=== PATIENT | male | born 1955 | race Caucasian/White ===

== ENCOUNTER 2018-08-11 12:21 | Emergency (ER) | payer OTHER ==
[~2018-08-11] VITALS: Wt 71.7 kg
[~2018-08-11 12:21] MED LIST: CO Q-1010 M2 PO; FISH OIL500 M1 PO; VITAMIN D5000 I3 PO
[2018-08-11 13:01] LABS: BASO % 0.3 % (0.0-1.0); EOS % 0.2 % (1.0-4.0); HEMATOCRIT 36.2 % (42.0-52.0); HEMOGLOBIN 11.3 g/dl (14.0-18.0); LYMPH # 1.3 10*3/uL (1.3-4.4); LYMPH % 11.3 % (27.0-41.0); MEAN CELL VOLUME 79.7 fl (80.0-94.0); MEAN CORPUSCULAR HGB 24.9 pg (27.0-31.0); MEAN CORPUSCULAR HGB CONC 31.2 g/dl (33.0-37.0); MEAN PLATELET VOLUME 10.3 fl (9.6-12.3); MONO # 1.2 10*3/uL (0.1-1.0); MONO % 10.4 % (3.0-9.0); NEUT # 9.2 10*3/uL (2.3-7.9); NEUT % 77.5 % (47.0-73.0); PLATELET COUNT AUTOMATED 423 10*3/uL (130-400); RED BLOOD COUNT 4.54 10*6/uL (4.50-5.90); WHITE BLOOD COUNT 11.8 10*3/uL (4.8-10.8)
[2018-08-11 13:11] LABS: ACT PARTIAL THROMBO TIME 30.3 SECONDS (20.8-31.5); INTERNATIONAL NORM RATIO 1.2 (2.0-3.5)
[2018-08-11 13:17] LABS: ALBUMIN 2.6 gm/dl (3.1-4.5); ALKALINE PHOSPHATASE 278 U/L (45-117); BUN 8 mg/dl (7-24); CHLORIDE 104 mmol/L (98-107); CREATININE 0.44 mg/dL (0.70-1.30); POTASSIUM 3.5 mmol/L (3.5-5.1); SGOT/AST 72 IU/L (3-35); SGPT/ALT 52 U/L (12-78); SODIUM 136 mmol/L (136-145); TOTAL PROTEIN 7.7 gm/dL (6.4-8.2)
== END 2018-08-11 14:58 | disposition short-term general hospital (02) ==
LOC: ED 12:21
PROVIDERS: Emergency Medicine
DX: M00.9 Pyogenic arthritis, unspecified (principal); L03.115 Cellulitis of right lower limb; M25.462 Effusion, left knee; M25.461 Effusion, right knee; Z87.891 Personal history of nicotine dependence; Z79.899 Other long term (current) drug therapy; Z85.038 Personal history of other malignant neoplasm of large intestine

== ENCOUNTER → 2020-02-28 | Outpatient (CLI) | payer MEDICARE ==
[2020-02-28 10:33] LABS: BASO % 0.6 % (0.0-1.0); EOS # 0.1 10*3/uL (0.0-0.4); EOS % 1.8 % (1.0-4.0); HEMATOCRIT 46.5 % (42.0-52.0); LYMPH # 1.2 10*3/uL (1.3-4.4); LYMPH % 17.2 % (27.0-41.0); MEAN CELL VOLUME 90.5 fl (80.0-94.0); MEAN CORPUSCULAR HGB 28.4 pg (27.0-31.0); MEAN CORPUSCULAR HGB CONC 31.4 g/dl (33.0-37.0); MEAN PLATELET VOLUME 11.3 fl (9.6-12.3); MONO # 0.5 10*3/uL (0.1-1.0); MONO % 7.5 % (3.0-9.0); NEUT # 4.9 10*3/uL (2.3-7.9); NEUT % 72.6 % (47.0-73.0); PLATELET COUNT AUTOMATED 198 10*3/uL (130-400); RED BLOOD COUNT 5.14 10*6/uL (4.50-5.90); RED CELL DISTRI WIDTH 14.3 % (0-14.5); RETICULOCYTE % 1.34 % (0.50-2.50); WHITE BLOOD COUNT 6.7 10*3/uL (4.8-10.8)
[2020-02-28 10:56] LABS: ALBUMIN 3.9 gm/dl (3.1-4.5); BUN 13 mg/dl (7-24); CHLORIDE 113 mmol/L (98-107); CREATININE 0.73 mg/dL (0.70-1.30); IRON 102 ug/dL (65-175); SGOT/AST 78 IU/L (3-35); SGPT/ALT 85 U/L (12-78); SODIUM 141 mmol/L (136-145); TOTAL IRON BINDING CAPACITY 377 ug/dl (250-450); TOTAL PROTEIN 7.3 gm/dL (6.4-8.2)
[2020-02-28 10:57] LABS: ALKALINE PHOSPHATASE 95 U/L (45-117)
[2020-02-28 10:58] LABS: ACT PARTIAL THROMBO TIME 25.7 SECONDS (20.0-32.1)
[2020-02-28 11:04] LABS: POTASSIUM 4.1 mmol/L (3.5-5.1)
== END | disposition home or self-care (01) ==
LOC: LAB 09:59
PROVIDERS: Family Medicine
DX: R79.89 Other specified abnormal findings of blood chemistry (principal); R53.83 Other fatigue; M79.609 Pain in unspecified limb

== ENCOUNTER → 2020-04-04 | Outpatient (CLI) | payer MEDICARE | END | disposition home or self-care (01) | LOC: US 16:24 | DX: R60.0 Localized edema (principal) ==

== ENCOUNTER → 2020-08-07 | Outpatient (CLI) | payer MEDICARE | END | disposition home or self-care (01) | LOC: US 07-26 13:30 | PROVIDERS: ATTEND Orthopaedic Surgery | DX: R59.0 Localized enlarged lymph nodes (principal); R93.5 Abnormal findings on diagnostic imaging of other abdominal regions, including retroperitoneum ==

== ENCOUNTER 2020-11-19 15:48 | Emergency (ER) | payer MEDICARE ==
[~2020-11-19] VITALS: Ht 177.8 cm; Wt 83.9 kg
[2020-11-19] MEDS ORDERED: COLCHICINE0.6 M2 PO (16:00)
[2020-11-19] MEDS ORDERED: ALEVE220 MG PO (16:01)
== END 2020-11-19 19:00 | disposition home or self-care (01) ==
LOC: ED 15:48
DX: S01.21XA Laceration without foreign body of nose, initial encounter (principal); Z79.899 Other long term (current) drug therapy; M06.9 Rheumatoid arthritis, unspecified; Z87.891 Personal history of nicotine dependence; W10.8XXA Fall (on) (from) other stairs and steps, initial encounter; Y93.89 Activity, other specified; Y92.89 Other specified places as the place of occurrence of the external cause; Y99.8 Other external cause status

== ENCOUNTER → 2024-02-22 | Outpatient (CLI) | payer MEDICARE ==
[~2024-02-22] MED LIST changes: +ALEVE220 MG PO; +COLCHICINE0.6 M2 PO
== END ==
LOC: LAB 09:37
PROVIDERS: ATTEND Family Medicine
DX: R53.83 Other fatigue (principal); R79.89 Other specified abnormal findings of blood chemistry

== ENCOUNTER → 2024-05-12 | Outpatient (CLI) | payer MEDICARE ==
[2024-05-12 16:34] LABS: ALKALINE PHOSPHATASE 86 U/L (46-116); BUN 16 mg/dl (9-23); CHLORIDE 108 mmol/L (98-107); POTASSIUM 4.1 mmol/L (3.4-5.1); SGPT/ALT 68 U/L (5-49); TOTAL PROTEIN 7.3 gm/dL (6.0-8.0)
== END | disposition home or self-care (01) ==
LOC: LAB 15:32
PROVIDERS: ATTEND Orthopaedic Surgery
DX: R53.83 Other fatigue (principal); M25.569 Pain in unspecified knee

== ENCOUNTER → 2024-08-11 | Outpatient (CLI) | payer MEDICARE ==
[2024-08-11 12:32] LABS: BILIRUBIN 1+ (Negative); BLOOD Negative (Negative); CLARITY Clear (Clear); COLOR Orange (Yellow); GLUCOSE Trace (Negative); KETONE Trace (Negative); LEUKO ESTERASE Trace (Negative); NITRITE Negative (Negative); SPECIFIC GRAVITY >= 1.030 (1.001-1.030)
[2024-08-11 12:35] LABS: HEMATOCRIT 47.8 % (42.0-52.0); MEAN CELL VOLUME 83.3 fl (80.0-94.0); MEAN CORPUSCULAR HGB 27.2 pg (27.0-31.0); MEAN CORPUSCULAR HGB CONC 32.6 g/dl (33.0-37.0); MEAN PLATELET VOLUME 11.6 fl (9.6-12.3); PLATELET COUNT AUTOMATED 122 10*3/uL (130-400); RED BLOOD COUNT 5.74 10*6/uL (4.50-5.90); RED CELL DISTRI WIDTH 12.9 % (0-14.5); RETICULOCYTE % 1.11 % (0.50-2.50); WHITE BLOOD COUNT 6.1 10*3/uL (4.8-10.8)
[2024-08-11 12:57] LABS: MANUAL DIFF REFLEX YES
[2024-08-11 13:02] LABS: ATYPICAL LYMPHS 11 % (0-0); TOTAL CELLS COUNTED 100 #CELLS
[2024-08-11 13:03] LABS: PLATELET SUFFICIENCY LOW (NORMAL)
[2024-08-11 13:18] LABS: ALKALINE PHOSPHATASE 86 U/L (46-116); BUN 17 mg/dl (9-23); CHLORIDE 101 mmol/L (98-107); GAMMA GLUTAMYL TRANSPEPTIDASE 63 U/L (0-73); POTASSIUM 3.7 mmol/L (3.4-5.1); SGPT/ALT 99 U/L (5-49); THYROXINE (T4) TOTAL 9.8 ug/dl (4.5-10.9); TOTAL PROTEIN 7.7 gm/dL (6.0-8.0)
[2024-08-11 13:19] LABS: VITAMIN D, 25-HYDROXY 37.3 ng/mL (30-100)
[2024-08-11 13:42] LABS: BACTERIA 1+; RBC 0-2 rbc/hpf (0-2)
[2024-08-11 13:43] LABS: MUCOUS 3+
[2024-08-12 05:07] LABS: HBsAG SCREEN Negative (Negative); HCV Ab Non Reactive (Non Reactive); HEP B CORE Ab, IgM Negative (Negative)
== END | disposition home or self-care (01) ==
LOC: LAB 11:40
PROVIDERS: ATTEND Family Medicine
DX: R53.83 Other fatigue (principal); R79.89 Other specified abnormal findings of blood chemistry; E78.5 Hyperlipidemia, unspecified; R74.8 Abnormal levels of other serum enzymes; E55.9 Vitamin D deficiency, unspecified

== ENCOUNTER → 2024-09-08 | Outpatient (CLI) | payer MEDICARE ==
[2024-09-08 12:16] LABS: BASO % 0.6 % (0.0-1.0); EOS # 0.2 10*3/uL (0.0-0.4); EOS % 3.5 % (1.0-4.0); HEMATOCRIT 44.9 % (42.0-52.0); MEAN CELL VOLUME 86.3 fl (80.0-94.0); MEAN CORPUSCULAR HGB 27.1 pg (27.0-31.0); MEAN CORPUSCULAR HGB CONC 31.4 g/dl (33.0-37.0); MEAN PLATELET VOLUME 10.3 fl (9.6-12.3); MONO # 0.4 10*3/uL (0.1-1.0); MONO % 6.8 % (3.0-9.0); NEUT # 3.3 10*3/uL (2.3-7.9); NEUT % 64.5 % (47.0-73.0); PLATELET COUNT AUTOMATED 171 10*3/uL (130-400); RED CELL DISTRI WIDTH 12.4 % (0-14.5); RETICULOCYTE % 1.43 % (0.50-2.50); WHITE BLOOD COUNT 5.1 10*3/uL (4.8-10.8)
[2024-09-08 12:17] LABS: BILIRUBIN Negative (Negative); BLOOD Negative (Negative); CLARITY Clear (Clear); COLOR Yellow (Yellow); GLUCOSE 3+ (Negative); KETONE Negative (Negative); LEUKO ESTERASE Negative (Negative); NITRITE Negative (Negative); PH 5.5 (4.5-8.0); SPECIFIC GRAVITY 1.025 (1.001-1.030); UROBILINOGEN 0.2 E.U./dl (0.0-1.0)
[2024-09-08 12:37] LABS: RBC 0-2 rbc/hpf (0-2); WBC 0-2 wbc/hpf (0-5)
[2024-09-08 12:45] LABS: ALKALINE PHOSPHATASE 106 U/L (46-116); BUN 12 mg/dl (9-23); CHLORIDE 105 mmol/L (98-107); CHOLESTEROL 173 mg/dL (<200); GAMMA GLUTAMYL TRANSPEPTIDASE 51 U/L (0-73); LDL CHOLESTEROL 79 mg/dL (9-159); POTASSIUM 3.8 mmol/L (3.4-5.1); SGPT/ALT 62 U/L (5-49); TOTAL PROTEIN 7.2 gm/dL (6.0-8.0); TRIGLYCERIDES 144 mg/dl (<150)
[2024-09-09 05:06] LABS: HBsAG SCREEN Negative (Negative); HCV Ab Non Reactive (Non Reactive); HEP B CORE Ab, IgM Negative (Negative)
== END | disposition home or self-care (01) ==
LOC: LAB 11:46
PROVIDERS: ATTEND Family Medicine
DX: R79.89 Other specified abnormal findings of blood chemistry (principal); R53.83 Other fatigue; E78.5 Hyperlipidemia, unspecified; E55.9 Vitamin D deficiency, unspecified

== ENCOUNTER → 2025-06-02 | Outpatient (CLI) | payer MEDICARE | END | disposition home or self-care (01) | LOC: RAD 10:38 | PROVIDERS: ATTEND Family Medicine | DX: M47.814 Spondylosis without myelopathy or radiculopathy, thoracic region (principal); M19.012 Primary osteoarthritis, left shoulder ==

== ENCOUNTER → 2025-08-23 | Outpatient (CLI) | payer MEDICARE ==
[2025-08-23 10:16] LABS: MEAN CELL VOLUME 85.4 fl (80.0-94.0); MEAN CORPUSCULAR HGB 27.6 pg (27.0-31.0); MEAN PLATELET VOLUME 10.2 fl (9.6-12.3); NUCLEATED RED BLOOD CELL 0.0 % (0.0-0.0); NUCLEATED RED BLOOD CELL 0.0 10*3/uL (0.0-0.0); PLATELET COUNT AUTOMATED 169 10*3/uL (130-400); RED CELL DISTRI WIDTH 12.6 % (0-14.5); RETICULOCYTE % 0.85 % (0.50-2.50)
[2025-08-23 10:36] LABS: BILIRUBIN Negative (Negative); BLOOD Negative (Negative); CLARITY Clear (Clear); COLOR Dark Yellow (Yellow); KETONE Negative (Negative); LEUKO ESTERASE Negative (Negative); NITRITE Negative (Negative); PH 5.5 (4.5-8.0); SPECIFIC GRAVITY >= 1.030 (1.001-1.030); UROBILINOGEN 0.2 E.U./dl (0.0-1.0)
[2025-08-23 10:44] LABS: BACTERIA 1+
[2025-08-23 10:45] LABS: MUCOUS 3+
[2025-08-23 10:46] LABS: BUN 13 mg/dl (9-23); GAMMA GLUTAMYL TRANSFERASE 33 U/L (0-73); LDL CHOLESTEROL 63 mg/dL (9-159); SGPT/ALT 39 U/L (5-49); T3 UPTAKE 29.0 % (22.4-36.7); THYROXINE (T4) TOTAL 7.3 ug/dl (4.5-10.9)
[2025-08-23 11:02] LABS: VITAMIN D, 25-HYDROXY 57.1 ng/mL (30-100)
[2025-08-23 11:37] LABS: PLATELET SUFFICIENCY NORMAL (NORMAL)
[2025-08-24 13:07] LABS: ANTI-DSDNA ANTIBODIES <1 IU/mL (0-9)
[2025-08-24 15:07] LABS: A/G RATIO 1.3 (0.7-1.7); BETA GLOBULIN 1.0 g/dL (0.7-1.3); GLOBULIN, TOTAL 2.9 g/dL (2.2-3.9)
== END | disposition home or self-care (01) ==
LOC: LAB 09:44
PROVIDERS: ATTEND Family Medicine
DX: R79.89 Other specified abnormal findings of blood chemistry (principal); E78.5 Hyperlipidemia, unspecified; R53.83 Other fatigue; E55.9 Vitamin D deficiency, unspecified